=== PATIENT | female | born 1960 | race Two or more races ===

== ENCOUNTER → 2018-04-19 | Outpatient (CLI) | payer OTHER | END | disposition home or self-care (01) | LOC: HKI 10:46 | DX: M25.512 Pain in left shoulder (principal) | CPT/HCPCS: 73564 ==

== ENCOUNTER → 2018-05-03 | Outpatient (CLI) | payer OTHER | END | disposition home or self-care (01) | LOC: HKI 12:05 | DX: M17.11 Unilateral primary osteoarthritis, right knee (principal) | CPT/HCPCS: 20610 ==

== ENCOUNTER → 2018-05-10 | Outpatient (CLI) | payer OTHER | END | disposition home or self-care (01) | LOC: HKI 11:36 | DX: M17.11 Unilateral primary osteoarthritis, right knee (principal); M76.9 Unspecified enthesopathy, lower limb, excluding foot | CPT/HCPCS: 20610; 20610-50 ==